=== PATIENT | female | born 1975 | race Caucasian/White ===

== ENCOUNTER 2021-10-29 09:58 | Outpatient (CLI) | payer BC | END 2021-10-29 09:59 | disposition home or self-care (01) | LOC: SCSMRI 09:58 | PROVIDERS: ATTEND Family Medicine Sports Medicine | DX: G56.92 Unspecified mononeuropathy of left upper limb (principal); M50.322 Other cervical disc degeneration at C5-C6 level | CPT/HCPCS: 72141 ==

== ENCOUNTER 2021-11-22 13:26 | Outpatient (CLI) | payer BC | END 2021-11-22 13:27 | disposition home or self-care (01) | LOC: SCSMRI 13:26 | PROVIDERS: ATTEND Psychiatry & Neurology Neurology | DX: G56.92 Unspecified mononeuropathy of left upper limb (principal); M50.222 Other cervical disc displacement at C5-C6 level; M32.9 Systemic lupus erythematosus, unspecified; M47.816 Spondylosis without myelopathy or radiculopathy, lumbar region; M48.02 Spinal stenosis, cervical region | CPT/HCPCS: 70544; 70553; 72156 ==

== ENCOUNTER 2022-01-10 16:26 | Outpatient (CLI) | payer BC | END 2022-01-10 16:27 | disposition home or self-care (01) | LOC: SCSRAD 16:26 | PROVIDERS: ATTEND Neurological Surgery | DX: M50.20 Other cervical disc displacement, unspecified cervical region (principal); M50.31 Other cervical disc degeneration, high cervical region | CPT/HCPCS: 72040 ==